=== PATIENT | male | born 1955 | race Caucasian/White ===

== ENCOUNTER → 2017-12-17 | Outpatient (CLI) | payer OTHER ==
[~2017-12-17] MED LIST: ASP325 PO; DABI150C3 PO; DIA5 PO; DILT120C4 PO; PANT40TA65 PO; PER PO
--- NOTE | 2017-12-17 16:48 | RADIOLOGY IMAGING REPORT ---
FACILITY: [facility] - [place] PATIENT NAME: William Jovel : 1955 MR: [id number] V: [id number] EXAM DATE: ORDERING PHYSICIAN: LORI FULTON TECHNOLOGIST: Location: [facility] - [place] Patient: William Jovel : 1955 Visit/Account:[id number] Date of Sevice: 12/17/2017 Exam type: VENOUS DOPP LOW RIGHT EXTREMIT History: Localized pain and swelling Comparison: None. Findings: The right lower extremity veins were imaged including the right common femoral vein, greater saphenou s vein, superficial femoral vein, popliteal vein, peroneal vein, posterior tibial vein and anterior t ibial veins revealing no evidence of intraluminal thrombi. The veins compress normally and demonstra jake augmentation IMPRESSION: 1. No sonographic evidence DVT involving the right lower extremity veins Results were called to LORI FULTON at 12/17/2017 4:42 PM. Report Dictated By: Viki Mcneal MD at 12/17/2017 4:40 PM Report E-Signed By: Viki Mcneal MD at 12/17/2017 4:43 PM WSN:[email or web address]
== END ==
LOC: US 15:36
PROVIDERS: ATTEND Physician Assistant
DX: R22.41 Localized swelling, mass and lump, right lower limb (principal); M79.606 Pain in leg, unspecified

== ENCOUNTER → 2017-12-19 | Outpatient (CLI) | payer OTHER ==
--- NOTE | 2017-12-21 21:31 | RT HOLTER TEST ---
FACILITY: [facility] PATIENT NAME: NOE GEE : [id number] MR: [id number] V: [id number] EXAM DATE: ORDERING PHYSICIAN: BIRGIT CUADRA TECHNOLOGIST: ABDIEL Hook-up date: 2017-12-19 08:05:00 Duration: 23:45:00 Test Indications: I48.1 Medications: N/A [id number] QRS complexes 35 Ventricular ectopics which represent <1 % of total QRS comp. * Supraventricular ectopics which represent % of total QRS comp. * Paced QRS complexes which represent % of total QRS comp. VENTRICULAR ECTOPY 35 Isolated 0 Bigeminal Cycles 0 Couplets 0 Runs 0 Beats in Runs * Beats LONGEST at * BPM at :: -- * Beats FASTEST at * BPM at :: -- SUPRAVENTRICULAR ECTOPY * Isolated * Couplets * Runs * Beats in Runs * Beats LONGEST at * BPM at :: -- * Beats FASTEST at * BPM at :: -- HEART RATES 61 MIN at 19:41:42 2017-12-19 118 AVG 182 MAX at 08:21:47 2017-12-19 LONGEST RR 1.528 secs at 20:21:48 2017-12-19 S-T LEVELS Channel 1 -12.800 mm MIN at 08:05:00 2017-12-19 -12.800 mm MAX at 08:05:00 2017-12-19 Channel 2 -12.800 mm MIN at 08:05:00 2017-12-19 -12.800 mm MAX at 08:05:00 2017-12-19 Channel 3 -12.800 mm MIN at 08:05:00 2017-12-19 -12.800 mm MAX at 08:05:00 2017-12-19 Atrial flutter with variable A-V block Premature ventricular complexes Confirmed by KATERINE BURGOS ([id number]) on 12/21/2017 9:30:40 PM Referred By: Overread By: KATERINE BURGOS
== END ==
LOC: RESP 02:40
PROVIDERS: ATTEND Internal Medicine Cardiovascular Disease
DX: I48.1 Persistent atrial fibrillation (principal)
CPT/HCPCS: 93225; 93226

== ENCOUNTER 2017-12-31 06:58 | Emergency (ER) | payer OTHER ==
[2017-12-31] MEDS ORDERED: DIAZEPAM 5 MG TAB PO ONE (07:55)
[2017-12-31 08:00] LABS: PLATELET COUNT, AUTOMATED 339 K/uL (150-450)
--- NOTE | 2017-12-31 08:12 | ER Report ---
History and Physical Time Seen By MD: 07:30 Hx. of Stated Complaint: PATIENT REPORTS THAT HIS NECK STARTED HURTING YESTERDAY. THIS MORNING HE REPORTS THAT HIS NECK STARTED CRAMPING. HPI/ROS This is a 62-year-old male has multiple chronic orthopedic injuries secondary to college wrestling. He states that he was shoveling snow yesterday and developed left sided neck pain. No falls or other blunt trauma. He describes the pain as intermittent, sharp, and shooting consistent with a muscle spasm. He is not taking any meds for the pain. He didn't take any meds, because he has atrial flutter and is on multiple medications. He did not want any medications to interact. 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 Currently he feels as if he cannot move his neck due to the muscle spasm on the left side. He denies chest pain or shortness of breath, and has no other complaints. Remainder of the 14 system rev: Yes Allergies: Coded Allergies: No Known Drug Allergies (Verified , 04/28/09) Home Meds Reported Medications Dabigatran Etexilate Mesylate (PRADAXA) 150 Mg Capsule, 150 MG PO QDAY, CAPSULE 12/31/17 Potassium Chloride (POTASSIUM CHLORIDE) 20 Meq Tab.er.prt, 20 MEQ PO QDAY 12/31/17 Metoprolol Succinate (METOPROLOL SUCCINATE) 50 Mg Tab.er.24h, 2 TAB PO QDAY, TAB 12/31/17 Diltiazem Hcl (DILTIAZEM 24HR CD) 180 Mg Cap.er.24h, 180 MG PO BID 12/31/17 Discontinued Reported Medications Dabigatran Etexilate Mesylate (PRADAXA) 150 Mg Capsule, 150 MG PO BID, CAPSULE 09/18/13 Pantoprazole Sodium (PANTOPRAZOLE SODIUM) 40 Mg Tablet.dr, 40 MG PO QDAY, TAB.SR 09/18/13 Diltiazem Hcl (DILTIAZEM ER) 120 Mg Capsule.er, 120 MG PO DAILY 09/18/13 [None] No Conflict Check, 0 Refills 04/28/09 Reviewed Nurses Notes: Yes Old Medical Records Reviewed: Yes Hx Smoking: No Smoking Status: Never Smoker Constitutional Vital Sign - Last 24 Hours 12/31/17 12/31/17 12/31/17 12/31/17 07:03 07:03 07:07 07:13 Temp 97.5 Pulse 136 145 Resp 20 B/P (MAP) 88/52 (64) 88/52 104/65 (78) Pulse Ox 96 93 O2 Delivery Room Air 12/31/17 12/31/17 12/31/17 12/31/17 07:28 07:33 07:38 07:43 Pulse 139 127 132 130 Pulse Ox 93 93 95 92 12/31/17 12/31/17 12/31/17 12/31/17 07:48 07:53 07:58 08:00 Pulse 143 ? B/P (MAP) 105/97 (100) 117/105 (109) Pulse Ox 92 91 12/31/17 12/31/17 12/31/17 12/31/17 08:08 08:10 08:15 08:18 Pulse 155 121 B/P (MAP) 111/98 (102) 114/98 (103) Pulse Ox 92 94 12/31/17 12/31/17 12/31/17 12/31/17 08:28 08:33 08:45 08:48 Pulse 126 144 155 B/P (MAP) 135/95 (108) Pulse Ox 95 94 93 12/31/17 12/31/17 12/31/17 12/31/17 09:00 09:03 09:15 09:18 Pulse 101 144 B/P (MAP) 92/79 (83) 110/92 (98) Pulse Ox 94 94 12/31/17 09:30 B/P (MAP) 108/94 (99) Physical Exam General Appearance: The patient is alert, has no immediate need for airway protection and no signs of toxicity. He appears uncomfortable and is sitting with his neck in a forward position Eyes: Pupils equal and round no pallor or injection. ENT, Mouth: Mucous membranes are moist. TTP of the left upper trapezius. Also with point TTP to the left insertion of the trapezius into the cranium. Respiratory: There are no retractions, lungs are clear to auscultation. Cardiovascular: Tachycardic and irregular rhythm Gastrointestinal: Abdomen is soft and non tender, no masses, bowel sounds normal. Neurological: motor and sensation grossly in tact Skin: Warm and dry, no rashes. Musculoskeletal: Neck is supple, no midline TTP. TTP which creates spasm and reproduces symptoms of the left trapezius spasm Extremities are nontender, nonswollen and have full range of motion. DIFFERENTIAL DIAGNOSIS: After history and physical exam differential diagnosis was considered for torticollis, meningitis, fracture, muscle spasm, afib with RVR, ACS, PE Medical Decision Making Data Points Result Diagram: 12/31/17 0717 12/31/17 0717 Laboratory Hematology Test 12/31/17 07:17 Red Blood Count 5.41 M/uL (4.00-5.60) Mean Corpuscular Volume 93.9 fL (80.0-96.0) Mean Corpuscular Hemoglobin 32.4 pg (26.0-33.0) Mean Corpuscular Hemoglobin Concent 34.5 g/dL (32.0-36.0) Red Cell Distribution Width 14.8 % (11.5-14.5) Mean Platelet Volume 8.4 fL (7.2-11.1) Neutrophils (%) (Auto) % (39.4-72.5) Lymphocytes (%) (Auto) % (17.6-49.6) Monocytes (%) (Auto) % (4.1-12.4) Eosinophils (%) (Auto) % (0.4-6.7) Basophils (%) (Auto) % (0.3-1.4) Nucleated RBC Relative Count (auto) /100WBC Neutrophils # (Auto) K/uL (2.0-7.4) Lymphocytes # (Auto) K/uL (1.3-3.6) Monocytes # (Auto) K/uL (0.3-1.0) Eosinophils # (Auto) K/uL (0.0-0.5) Basophils # (Auto) K/uL (0.0-0.1) Nucleated RBC Absolute Count (auto) K/uL Neutrophils % (Manual) 66 % (39.4-72.5) Band Neutrophils % 16 % Lymphocytes % (Manual) 7 % (17.6-49.6) Atypical Lymphocytes % 3 % Monocytes % (Manual) 6 % (4.1-12.4) Eosinophils % (Manual) 1 % (0.4-6.7) Basophils % (Manual) 1 % (0.3-1.4) Peripheral Blood Smear Yes Y/N Sodium Level 134 mmol/L (137-145) Potassium Level 4.5 mmol/L (3.5-5.0) Chloride Level 94 mmol/L (98-107) Carbon Dioxide Level 24 mmol/L (22-30) Blood Urea Nitrogen 15 mg/dl (9-21) Creatinine 1.20 mg/dl (0.66-1.25) Glomerular Filtration Rate Calc > 60.0 Random Glucose 134 mg/dl (75-110) Calcium Level 9.9 mg/dl (8.4-10.2) Magnesium Level 2.0 mg/dl (1.7-2.2) Total Bilirubin 1.3 mg/dl (0.2-1.3) Aspartate Amino Transf (AST/SGOT) 39 U/L (0-35) Alanine Aminotransferase (ALT/SGPT) 43 U/L (0-56) Alkaline Phosphatase 104 U/L (0-126) Total Protein 8.7 gm/dl (6.3-8.2) Albumin 4.6 g/dl (3.5-5.0) Free Thyroxine 1.14 ng/dl (0.78-2.19) Acetaminophen Level < 10 ug/ml Chemistry Test 12/31/17 07:17 White Blood Count 12.1 k/uL (4.5-11.0) Red Blood Count 5.41 M/uL (4.00-5.60) Hemoglobin 17.5 g/dL (14.0-18.0) Hematocrit 50.8 % (42.0-52.0) Mean Corpuscular Volume 93.9 fL (80.0-96.0) Mean Corpuscular Hemoglobin 32.4 pg (26.0-33.0) Mean Corpuscular Hemoglobin Concent 34.5 g/dL (32.0-36.0) Red Cell Distribution Width 14.8 % (11.5-14.5) Platelet Count 339 K/uL (150-450) Mean Platelet Volume 8.4 fL (7.2-11.1) Neutrophils (%) (Auto) % (39.4-72.5) Lymphocytes (%) (Auto) % (17.6-49.6) Monocytes (%) (Auto) % (4.1-12.4) Eosinophils (%) (Auto) % (0.4-6.7) Basophils (%) (Auto) % (0.3-1.4) Nucleated RBC Relative Count (auto) /100WBC Neutrophils # (Auto) K/uL (2.0-7.4) Lymphocytes # (Auto) K/uL (1.3-3.6) Monocytes # (Auto) K/uL (0.3-1.0) Eosinophils # (Auto) K/uL (0.0-0.5) Basophils # (Auto) K/uL (0.0-0.1) Nucleated RBC Absolute Count (auto) K/uL Neutrophils % (Manual) 66 % (39.4-72.5) Band Neutrophils % 16 % Lymphocytes % (Manual) 7 % (17.6-49.6) Atypical Lymphocytes % 3 % Monocytes % (Manual) 6 % (4.1-12.4) Eosinophils % (Manual) 1 % (0.4-6.7) Basophils % (Manual) 1 % (0.3-1.4) Peripheral Blood Smear Yes Y/N Glomerular Filtration Rate Calc > 60.0 Calcium Level 9.9 mg/dl (8.4-10.2) Magnesium Level 2.0 mg/dl (1.7-2.2) Total Bilirubin 1.3 mg/dl (0.2-1.3) Aspartate Amino Transf (AST/SGOT) 39 U/L (0-35) Alanine Aminotransferase (ALT/SGPT) 43 U/L (0-56) Alkaline Phosphatase 104 U/L (0-126) Total Protein 8.7 gm/dl (6.3-8.2) Albumin 4.6 g/dl (3.5-5.0) Free Thyroxine 1.14 ng/dl (0.78-2.19) Acetaminophen Level < 10 ug/ml Toxicology Test 12/31/17 07:17 Acetaminophen Level < 10 ug/ml EKG/Imaging Monitor Interpretation: Atrial Flutter ED Course/Re-evaluation ED Course This is a 62-year-old male with a past medical history significant for atrial flutter which has been refractory to cardiac ablations as well as cardioversion and is currently on rate control meds only as well as Pradaxa. He presented to the emergency department today complaining of musculoskeletal left-sided neck spasm which occurred after shoveling snow yesterday. The nursing staff noted his heart rate to be in the 160s and obtained an EKG which showed atrial flutter with a heart rate of 148. He is currently on metoprolol 100 mg twice a day and diltiazem 180 mg in the morning. He was otherwise asymptomatic from his atrial flutter with RVR. I discussed possible cardioversion his guest relations agent Dr. Phipps, and the consensus is that his A. fib and a flutter so refractory to electrical cardioversion that it would either not be successful be successful only temporarily. Dr. Phipps recommended that the patient call ahead and increase the diltiazem to twice a day. Dr. Phipps also recommended that after initiating that medication change he should take his heart rate and required multiple times a day. Call is for his heart rate to be under 110. Pain control does not work for this patient then the cardiology team will discuss an ablation procedure with the patient. His electrolytes were checked and were within normal limits. As far as his muscle spasm he was given 5 mg of Valium as well as a gram of Tylenol and a trigger point injection was performed by me. His pain and muscle spasm is somewhat relieved from the medications and procedure. Procedure Trigger point injection - I cleaned the area of the left trapezius insertion to the cranium with alcohol swabs. Using a combination of bupivicaine and lidocaine both without epi, I located the trigger point of pain and injected 2.5 ml of each at the site using a 27 gauge needle. The patient tolerated the procedure well Decision to Disposition Date: Dec 31, 2017 Decision to Disposition Time: 10:28 Depart Departure Latest Vital Signs Vital Signs Date Time Temp Pulse Resp B/P (MAP) Pulse Ox O2 Delivery O2 Flow Rate FiO2 12/31/17 09:30 108/94 (99) 12/31/17 09:18 144 94 12/31/17 07:03 97.5 20 Room Air Impression: Primary Impression: UNSPECIFIED ATRIAL FLUTTER Additional Impression: SPASMODIC TORTICOLLIS Condition: Improved Disposition: HOME OR SELF-CARE New Scripts Diazepam (VALIUM) 5 Mg Tablet 5 MG PO 2-3XD for Muscle Relaxant, #15 TAB Prov: ENEDINA FLORES MD 12/31/17 Patient Instructions: Spasmodic Torticollis (ED) Additional Instructions: start taking your metoprolol and diltiazem both 2 times a day Problem Qualifiers ENEDINA FLORES MD Dec 31, 2017 08:12
[2017-12-31] MEDS ORDERED: ACETAMINOPHEN 500 MG TAB PO ONE (08:45)
[2017-12-31] MEDS ORDERED: METO50TA19 PO (08:50)
[2017-12-31] MEDS ORDERED: DILT180C4 PO (08:50)
[2017-12-31] MEDS ORDERED: POTA20TA94 PO (08:51)
[2017-12-31] MEDS ORDERED: DABI150C3 PO (08:51)
--- NOTE | 2017-12-31 10:22 | EKG ---
FAC[place] [facility] [place]IENT NAME: NOE GEE : [id number] MR: [id number] V: [id number] EXAM DATE: ORDERING PHYSICIAN: ENEDINA FLORES TECHNOLOGIST: Test Reason : AFIB Blood Pressure : / mmHG Vent. Rate : 148 BPM Atrial Rate : 388 BPM P-R Int : 000 ms QRS Dur : 076 ms QT Int : 302 ms P-R-T Axes : 000 214 000 degrees QTc Int : 474 ms Atrial flutter with variable AV block Right superior axis deviation Anterior infarct , age undetermined Abnormal ECG When compared with ECG of 18-SEP-2013 21:46, Vent. rate has increased BY 53 BPM Questionable change in QRS axis Nonspecific T wave abnormality no longer evident in Anterolateral leads Referred By: Confirmed By:
[2017-12-31] MEDS ORDERED: DIA5 PO (10:29)
[2017-12-31 10:31] VITALS: BP 129/102
== END 2017-12-31 10:51 | disposition home or self-care (01) ==
LOC: ER 07:03
DX: I48.92 Unspecified atrial flutter (principal); G24.3 Spasmodic torticollis; Z79.899 Other long term (current) drug therapy
CPT/HCPCS: 80329; 82040; 82247; 82310; 82374; 82435; 82565; 82947; 83735; 84075; 84132; 84155; 84295; 84439; 84443; 84450; 84460; 84520; 85025; 93005; 99284

== ENCOUNTER → 2018-01-08 | Outpatient (CLI) | payer OTHER ==
[~2018-01-08] MED LIST changes: +DILT180C4 PO; +METO50TA19 PO; +POTA20TA94 PO
== END ==
LOC: LAB 12:25
PROVIDERS: ATTEND Orthopaedic Surgery
DX: M25.561 Pain in right knee (principal); M25.461 Effusion, right knee
CPT/HCPCS: 36415; 84550; 85027; 85651; 86038; 86140; 86430; 87205; 89050

== ENCOUNTER → 2018-03-17 | Outpatient (CLI) | payer OTHER ==
[2018-03-17 09:02] LABS: PLATELET COUNT, AUTOMATED 367 K/uL (150-450)
--- NOTE | 2018-03-17 09:08 | EKG ---
FACILITY: [facility] - [place] PATIENT NAME: NOE GEE : [id number] MR: [id number] V: [id number] EXAM DATE: ORDERING PHYSICIAN: KERON SORIANO TECHNOLOGIST: HELENA Test Reason : PRE-OP Blood Pressure : / mmHG Vent. Rate : 098 BPM Atrial Rate : 131 BPM P-R Int : 000 ms QRS Dur : 078 ms QT Int : 334 ms P-R-T Axes : 000 253 -24 degrees QTc Int : 426 ms Atrial fibrillation Right superior axis deviation Abnormal ECG When compared with ECG of 31-DEC-2017 07:06, Atrial fibrillation has replaced Atrial flutter Vent. rate has decreased BY 50 BPM Confirmed by VERENICE NORTON ([id number]) on 03/17/2018 1:00:52 PM Referred By: CHRISTIE Confirmed By:VERENICE NORTON
--- NOTE | 2018-03-17 09:34 | RADIOLOGY IMAGING REPORT ---
FACILITY: [facility] [place] PATIENT NAME: William Jovel : 1955 MR: [id number] V: [id number] EXAM DATE: ORDERING PHYSICIAN: KERON SORIANO TECHNOLOGIST: Location: [facility] Patient: William Jovel : 1955 Visit/Account:[id number] Date of Sevice: 03/17/2018 Technique: CERVICAL SPINE 2 OR 3 VIEW HISTORY: Preoperative Comparison studies: None FINDINGS: There is no acute fracture. Present is 2 mm retrolisthesis of C2 on C3, 2 mm anterolisthes is of C3 on C4 as well as 3 mm anterolisthesis of C4 on C5. This is not significantly changed with f lexion or extension. Multilevel degenerative changes are present characterized by intervertebral dis c space narrowing and endplate osteophytosis. These findings are most pronounced within the mid and lower cervical spine. The vertebral body heights are maintained. IMPRESSION: 1. Multilevel degenerative changes as characterized above. Report Dictated By: Ben Elmore DO at 03/17/2018 9:27 AM Report E-Signed By: Ben Elmore DO at 03/17/2018 9:29 AM WSN:[email or web address]
== END ==
LOC: RAD 08:35
PROVIDERS: ATTEND Orthopaedic Surgery
DX: Z01.812 Encounter for preprocedural laboratory examination (principal); Z01.810 Encounter for preprocedural cardiovascular examination; M43.6 Torticollis; M17.11 Unilateral primary osteoarthritis, right knee; I48.91 Unspecified atrial fibrillation; R06.02 Shortness of breath; M10.9 Gout, unspecified; M47.892 Other spondylosis, cervical region
CPT/HCPCS: 36415; 72040; 80162; 81001; 82040; 82247; 82310; 82374; 82435; 82565; 82947; 84075; 84132; 84155; 84295; 84450; 84460; 84520; 85025; 93005

== ENCOUNTER 2018-04-14 01:19 | Inpatient (IN) | payer OTHER ==
[2018-04-13 15:48] LABS: INR 0.97
[2018-04-14] VITALS (15 sets, daily range): BP systolic 93–129; BP diastolic 65–102
[~2018-04-14] VITALS: Ht 172.7 cm; Wt 80.7 kg
[~2018-04-14 01:19] MED LIST changes: +ALLO-119 PO; +APIX2.5T PO; +COLC1TAB5 PO; +DIGO125T73 PO; +FURO20TA19 PO
[2018-04-14] MEDS ORDERED: LIDOCAINE/SOD BICARB 8.4% SYR ID ONE (06:15)
[2018-04-14] MEDS ORDERED: cloNIDine EPIDUR INJ 100MCG/ML 40 MCG, ROPIVACAINE 0.5% 20 ML VIAL 25 ML, EPINEPHrine H... INJ ONE (06:15)
[2018-04-14] MEDS ORDERED: CELECOXIB 200 MG CAP PO ONE (06:15)
[2018-04-14] MEDS ORDERED: MIDAZOLAM 2 MG/2 ML VIAL IVP PRN (06:15)
[2018-04-14] MEDS ORDERED: ceFAZolin(*) 1 GM VIAL 1 GM in NS(*) 0.9% 100 ML ADDVANT BAG 100 ML IVPB ONE (06:15)
[2018-04-14] MEDS ORDERED: FAMOTIDINE 20 MG TAB PO ONE (06:15)
[2018-04-14] MEDS ORDERED: PREGABALIN 150 MG CAPSULE PO ONE (06:15)
[2018-04-14] MEDS ORDERED: ACETAMINOPHEN 500 MG TAB PO ONE (06:15)
[2018-04-14] MEDS ORDERED: NORMOSOL R SOLN(*) 1000 ML BAG 1,000 ML IV PRN ×2 (06:15→09:40)
[2018-04-14] MEDS ORDERED: fentaNYL CITR 250 MCG/5 ML AMP ONE (06:30)
[2018-04-14] MEDS ORDERED: DEXAMETHASONE SOD PHOS 10MG/ML ONE (06:30)
[2018-04-14] MEDS ORDERED: LIDOCAINE MPF 1% 5 ML VIAL ONE (06:30)
[2018-04-14] MEDS ORDERED: ONDANSETRON 4 MG/2 ML VIAL ONE (06:30)
[2018-04-14] MEDS ORDERED: PROPOFOL EMUL(*) 10MG/ML 20 ML 20 ML ONE (06:30)
[2018-04-14] MEDS ORDERED: ROPIVACAINE 0.2% 20 ML VIAL ONE (06:49)
[2018-04-14] MEDS ORDERED: EPINEPHrine HCL 1 MG/ML AMP ONE (06:50)
[2018-04-14] MEDS ORDERED: METOPROLOL TART 5 MG/5 ML VIAL ONE (07:25)
[2018-04-14] MEDS ORDERED: ROCURONIUM BROM 10 MG/ML 5 ML ONE (07:30)
[2018-04-14] MEDS ORDERED: ESMOLOL 10 MG/ML 10ML SDV ONE (07:35)
[2018-04-14] MEDS ORDERED: KETAMINE HCL 200 MG/20 ML MDV ONE (07:39)
[2018-04-14] MEDS ORDERED: PHENYLEPHRINE/NS/PF 0.4MG/10ML ONE (07:41)
[2018-04-14] MEDS ORDERED: TRANEXAMIC AC 1000 MG/10ML SDV 1,000 MG in DEXTROSE 5% 50 ML BAG 50 ML IV ONE (07:45)
[2018-04-14] MEDS ORDERED: SUGAMMADEX SOD 200 MG/2 ML SDV ONE (07:48)
[2018-04-14] MEDS ORDERED: HYDROmorphone HCL 2 MG/ML SDV ONE (08:18)
[2018-04-14] MEDS ORDERED: ROPIVACAINE 0.2% 400 MG/200ML 250 ML CONINFUS ONE (08:30)
[2018-04-14] MEDS ORDERED: PROMETHAZINE 25 MG/ML 1 ML AMP IVP PRN (09:40)
[2018-04-14] MEDS ORDERED: NALOXONE HCL 0.4 MG/ML VIAL IVP PRN (09:40)
[2018-04-14] MEDS ORDERED: FLUSH 10 ML SYR IVP PRN (09:40)
[2018-04-14] MEDS ORDERED: MAGNESIUM HYDROXIDE* 30ML UDCP PO PRN (09:40)
[2018-04-14] MEDS ORDERED: ONDANSETRON 4 MG/2 ML VIAL IVP PRN (09:40)
[2018-04-14] MEDS ORDERED: BISACODYL 10 MG SUPP PR PRN (09:40)
[2018-04-14] MEDS ORDERED: MORPHINE SULFATE 30 MG PCA IV PRN (09:40)
[2018-04-14] MEDS ORDERED: MORPHINE 4 MG/ML SDV IVP PRN (09:45)
[2018-04-14] MEDS ORDERED: fentaNYL CITR 100 MCG/2 ML AMP ONE (10:11)
--- NOTE | 2018-04-14 10:42 | OPERATIVE REPORT 1 ---
EVENT DATE: April 14, 2018 SURGEON: Charlie Feliciano MD ANESTHESIOLOGIST: Estuardo Vu MD ANESTHESIA: Right adductor canal block with indwelling catheter and general. SUPERVISOR KNITTING: Kale Mesa PA-C PREOPERATIVE DIAGNOSIS Right knee degenerative joint disease with varus alignment and significant flexion contracture. POSTOPERATIVE DIAGNOSIS Right knee degenerative joint disease with varus alignment and significant flexion contracture. PROCEDURE Right total knee arthroplasty. IMPLANTS MicroPort medial pivot shift CS system with a 5 femur, 6 tibia, 14 mm CS insert , 32 x 8 symmetric patella, femur cut 6 degrees valgus, and initially 12 mm. We also utilized two packages of DonJoy cobalt blue cement. We also utilized 50 mL of our standard ropivacaine/Toradol cocktail and ZipLine wound closure system. SPECIMENS None. COMPLICATIONS None. ESTIMATED BLOOD LOSS Less than 200 mL. OPERATION Patient received appropriate preoperative antibiotic, was brought to the OR, where Dr. Ashutosh Vu performed right adductor canal block and indwelling catheter followed by general anesthesia. Right thigh tourniquet was placed, right lower extremity prepped and draped in the usual sterile fashion. Midline incision was made, followed by medial parapatellar arthrotomy. I dissected subperiosteally to the level of the semimembranosus insertion in subperiosteal fashion by Bovantoine. Fat pad was excised, patella released and everted. I noted fairly significant rheumatoid soft tissue reaction and synovitis, and this was excised. We then brought the knee up into flexion with appropriate retractors, noted significant osteophytes in the notch, and these were removed, and the PCL was released subperiosteally by Bovie. The ACL was absent. Remaining articular cartilage was removed from the distal femoral condyles by sagittal saw, then we used our step cut drill to broach the canal. We placed our distal femoral alignment guide, setting this up 6 degrees valgus and 12 mm. We made our cut. We then placed our 3 degree external rotation guide, referencing off the posterior condyles, epicondyles and anterior flange and sized the femur to a # 5. 4-in-1 cutting block was positioned followed by appropriate retractors to protect the soft tissue. We made our four cuts. We then brought the tibia anteriorly on the femur with appropriate retractors, utilized the step cut drill , broached the tibial canal, and then placed our medullary tibial guide, which referenced for slope. We then set up the cutting block, referencing 10 mm off the least involved lateral tibial plateau and set up for rotation, pinned our block into place. Tibial cut was made. Osteophytes were removed from the medial side. The stump of the PCL, medial and lateral meniscus were removed by Bovie. Posterior osteophytes were removed by curved osteotome. Posterior capsule and gastrocs were elevated off the femur with a Hewitt elevator. We then placed our trial tibial base place, #6, referencing from the previous rotation, pinned in this place. Starting with a 12 mm insert, we then placed our femur, and we noted that we lacked about 5-10 degrees from full extension. The femur, tibial insert were removed. We then placed appropriate retractors, and we placed our distal femoral cutting guide once again and set this up for a +2 cut , making the total distal femur cut 14 mm. We placed the 4-in-1 cutting block, made our distal cut. We then placed our 4-in-1 cutting block and redid our chamfers. We then placed our 14 mm insert and our femur. We achieved full extension now and flexion to 140 degrees and stable through varus, valgus stress. At 90 degrees, we had a satisfactory anterior drawer. Knee was brought up in full extension. Patella was sized to 27 mm in depth. We cut 8 mm with the guide and set up our peg hole guide inferiorly medially, drilled our peg holes for a 32 x 8 mm patella. Knee was brought up into extension, peg holes drilled for our femur, pegs placed, and cut made for our trochlear chip, and the chip was placed. We placed our patella. Again we had the aforementioned range of motion and stability. Anterior drawer was satisfactory and patella tracked well. Patella, femur, tibial insert were removed. Appropriate retractors were placed. We placed our tibial keel guide, and we cut , reamed and punched for this. All instrumentation was then removed, bone plug placed in the distal femur. We copiously irrigated by pulse lavage while we mixed two packages of DonJoy cobalt blue cement. We injected the posterior capsule with 10 mL of our cocktail, brought the knee up in appropriate position , irrigated, dried the bone, and starting at the tibia, cemented this into place followed by our 14 mm CS insert, then our #5 femur. Excess cement was removed, knee brought out in full extension with axial compression while we cemented the patella. It took 15 minutes for the cement to harden. While the cement was hardening, we injected the remaining cocktail into the distal quad mechanism, copiously irrigated by pulse lavage. After the cement had hardened, again we had full extension, flexion to 140. Patella tracked well. Stability through varus, valgus stress, and satisfactory end point and anterior drawer. We irrigated once again utilizing a total of 4L. We then closed our arthrotomy with #2 Vicryl in [id number] suture fashion, followed by 2-0 Vicryl for subcutaneous tissues. We cleaned the wounds, applied our ZipLine wound closure system at 45 degrees, and placed our compressive dressing. Patient was then extubated and taken to recovery in stable condition. Hospitalist team will be consulted for medical management and anticoagulation, PT for rehab. CLAUDIA
--- NOTE | 2018-04-14 10:46 | RADIOLOGY IMAGING REPORT ---
FACILITY: PATIENT NAME: William Jovel : 1955 MR: [id number] V: [id number] EXAM DATE: ORDERING PHYSICIAN: KERON SORIANO TECHNOLOGIST: Location: [facility] - [place] Patient: William Jovel : 1955 Visit/Account:[id number] Date of Sevice: 04/14/2018 Exam type: KNEE LIMITED RIGHT History: Postop total knee Comparison: None. Findings: AP and lateral views of the right knee demonstrate a total right knee arthroplasty in good anatomic a lignment. Soft tissue gas projects over the anterior aspect this postoperative knee IMPRESSION: 1. As above Report Dictated By: Viki Mcneal MD at 04/14/2018 10:41 AM Report E-Signed By: Viki Mcneal MD at 04/14/2018 10:42 AM WSN:[email or web address]
--- NOTE | 2018-04-14 14:09 | Hospitalist Consultation ---
History of Present Illness Requesting Physician Dr. Feliciano Reason for Consult Chronic atrial fibrillation History of Present Illness This patient was admitted for knee replacement surgery. It is reported that the surgery went well and was without complication. History Problems: (1) Chronic a-fib (2) H/O cardiac radiofrequency ablation Home Meds Reported Medications Colchicine/Probenecid (PROBENECID-COLCHICINE TABS) 1 Each Tablet, 1 EACH PO DAILY 04/07/18 Furosemide (LASIX) 20 Mg Tablet, 1 TAB PO DAILY, TAB 04/07/18 Digoxin (DIGOXIN) 125 Mcg Tablet, 125 MCG PO DAILY 04/07/18 Allopurinol (ZYLOPRIM) 300 Mg Tablet, 300 MG PO HS, TAB 04/07/18 Apixaban (ELIQUIS) 2.5 Mg Tablet, 2.5 MG PO BID 04/07/18 Potassium Chloride (POTASSIUM CHLORIDE) 20 Meq Tab.er.prt, 20 MEQ PO QDAY 12/31/17 Metoprolol Succinate (METOPROLOL SUCCINATE) 50 Mg Tab.er.24h, 2 TAB PO QDAY, TAB 12/31/17 Diltiazem Hcl (DILTIAZEM 24HR CD) 180 Mg Cap.er.24h, 180 MG PO BID 12/31/17 Discontinued Reported Medications Dabigatran Etexilate Mesylate (PRADAXA) 150 Mg Capsule, 150 MG PO QDAY, CAPSULE 12/31/17 Discontinued Scripts Diazepam (VALIUM) 5 Mg Tablet, 5 MG PO 2-3XD for Muscle Relaxant, #15 TAB Prov:ENEDINA FLORES MD 12/31/17 Allergies: Coded Allergies: No Known Drug Allergies (Verified , 04/13/18) Patient History: FH: brain aneurysm MOTHER, FH: heart disease FATHER BROTHER OR SISTER Hx Smoking: No Smoking Status: Never Smoker Caffeine Intake: Coffee Caffeine/Cups Per Day: 3 Hx Alcohol Use: Yes Alcohol Used: Beer Hx Substance Use Disorder: No Social Drug Use: Never History of IV Drug Use: No Review of Systems All Systems Reviewed/Normal: Yes Exam Vital Signs Vital Signs Date Time Temp Pulse Resp B/P (MAP) Pulse Ox O2 Delivery O2 Flow Rate FiO2 04/14/18 13:30 99/78 (85) 04/14/18 13:00 101 90 Nasal Cannula 0.5 04/14/18 11:00 98.3 12 Neuro: No Gross deficits Cardiovascular: Regular Rate and Rhythm Respiratory: Clear to Auscultation Extremities: No Edema Integumentary: No Cyanosis Assessment and Plan Problems: (1) S/P knee replacement Assessment & Plan: He has been on Eliquis for his atrial fibrillation and will resume this post operatively. (2) Chronic a-fib Assessment & Plan: He is on chronic treatment with digoxin, metoprolol, and Eliquis. (3) Gout Assessment & Plan: He is on chronic treatment with allopurinol. (4) Hypertension Assessment & Plan: He is on chronic treatment with Lasix, which is currently on hold. Venous Thromboembolism Antithrombotics Is Pt On Any Antithrombotics?: Yes Exam Sepsis Risk: No Definite Risk KATERINE BURGOS DO Apr 14, 2018 14:09
[2018-04-14] MEDS ORDERED: METO100T20 PO (15:21)
[2018-04-14] MEDS ORDERED: CEPH500C24 PO (15:29)
[2018-04-14] MEDS ORDERED: NS(*) 0.9% 250 ML BAG 250 ML ONE (16:11)
[2018-04-14] MEDS: ceFAZolin(*) 1 GM VIAL 1 GM in NS(*) 0.9% 100 ML ADDVANT BAG 100 ML IVPB SCH ×2 (16:14→23:47)
[2018-04-14] MEDS ORDERED: NS(*) 0.9% 250 ML BAG 250 ML IV PRN (16:15)
[2018-04-14] MEDS: ACETAMINOPHEN 500 MG TAB PO SCH ×2 (16:49→23:48)
[2018-04-14] MEDS: ZOLPIDEM TARTRATE 5 MG TAB PO PRN (20:56)
[2018-04-14] MEDS: DILTIAZEM CD 180 MG CAPCR PO SCH (20:56)
[2018-04-14] MEDS: ALLOPURINOL 300 MG TAB PO SCH (20:56)
[2018-04-14] MEDS: METOPROLOL SUCC XL 50 MG TABCR 50 MG TAB.ER.24H PO SCH (20:56)
[2018-04-15] VITALS (9 sets, daily range): BP systolic 80–130; BP diastolic 56–101; Ht 172.7 cm; Wt 80.7 kg
[2018-04-15] MEDS: ceFAZolin(*) 1 GM VIAL 1 GM in NS(*) 0.9% 100 ML ADDVANT BAG 100 ML IVPB SCH (06:14)
--- NOTE | 2018-04-15 07:48 | Hospitalist Progress Note ---
Subjective Progress Notes Subjective This patient was admitted for knee replacement. He had no acute issues overnight. Patient Complains of: Cardiovascular: No: Chest Pain Respiratory: No: Shortness of Breath Physical Exam Vital Signs Date Time Temp Pulse Resp B/P (MAP) Pulse Ox O2 Delivery O2 Flow Rate FiO2 04/15/18 07:18 98.2 126 16 115/94 (101) 95 Room Air 04/15/18 05:57 0.5 Intake and Output 04/16/18 07:00 # Voids 1 Cardiovascular: Regular Rate and Rhythm Respiratory: Clear to Auscultation Result Diagram: 04/15/18 0552 Assessment and Plan Problems: (1) S/P knee replacement Assessment & Plan: He has been on Eliquis for his atrial fibrillation and will resume this post operatively. (2) Chronic a-fib Assessment & Plan: He is on chronic treatment with digoxin, metoprolol, and Eliquis. (3) Gout Assessment & Plan: He is on chronic treatment with allopurinol. (4) Hypertension Assessment & Plan: He is on chronic treatment with Lasix, which is currently on hold. Exam Sepsis Risk: No Definite Risk KATERINE BURGOS DO Apr 15, 2018 07:48
[2018-04-15] MEDS: POTASSIUM CHL 20 MEQ TABCR PO SCH (08:52)
[2018-04-15] MEDS: DILTIAZEM CD 180 MG CAPCR PO SCH ×2 (08:52→20:54)
[2018-04-15] MEDS: APIXABAN 2.5 MG TABLET PO SCH ×2 (08:52→20:55)
[2018-04-15] MEDS: DIGOXIN 0.125 MG TAB PO SCH (08:52)
[2018-04-15] MEDS: ACETAMINOPHEN 500 MG TAB PO SCH ×2 (08:53→16:27)
[2018-04-15] MEDS: PROBENECID PO SCH (08:56)
[2018-04-15] MEDS: COLCHICINE PO SCH (08:56)
[2018-04-15] MEDS: METOPROLOL SUCC XL 50 MG TABCR 50 MG TAB.ER.24H PO SCH ×2 (09:00→20:55)
[2018-04-15] MEDS ORDERED: METOPROLOL SUCC XL 50 MG TABCR 50 MG TAB.ER.24H PO SCH (09:00)
[2018-04-15] MEDS: oxyCODONE HCL 5 MG CAP PO PRN (13:39)
[2018-04-15] MEDS: METOPROLOL TART 5 MG/5 ML VIAL IVP PRN ×2 (15:46→18:35)
[2018-04-15] MEDS: ALLOPURINOL 300 MG TAB PO SCH (20:54)
[2018-04-15] MEDS: ZOLPIDEM TARTRATE 5 MG TAB PO PRN (20:55)
[2018-04-16 00:51] VITALS: BP 133/96
[2018-04-16] MEDS: ACETAMINOPHEN 500 MG TAB PO SCH ×2 (01:07→10:19)
[2018-04-16 03:44] VITALS: BP 129/99
[2018-04-16 05:41] LABS: PLATELET COUNT, AUTOMATED 211 K/uL (150-450)
[2018-04-16 07:04] VITALS: BP 122/78
[2018-04-16] MEDS: COLCHICINE PO SCH ×2 (09:00→10:36)
[2018-04-16] MEDS: PROBENECID PO SCH ×2 (09:00→10:36)
[2018-04-16] MEDS ORDERED: APIXABAN 2.5 MG TABLET PO ONE (10:05)
[2018-04-16 10:12] VITALS: BP 132/84
[2018-04-16] MEDS: DILTIAZEM CD 180 MG CAPCR PO SCH (10:18)
[2018-04-16] MEDS: DIGOXIN 0.125 MG TAB PO SCH (10:18)
[2018-04-16] MEDS: METOPROLOL SUCC XL 50 MG TABCR 50 MG TAB.ER.24H PO SCH (10:19)
[2018-04-16] MEDS: POTASSIUM CHL 20 MEQ TABCR PO SCH (10:19)
[2018-04-16] MEDS: oxyCODONE HCL 5 MG CAP PO PRN (10:28)
[2018-04-16] MEDS ORDERED: LEFL20TA6 PO (10:45)
--- NOTE | 2018-04-16 10:48 | Hospitalist Progress Note ---
Subjective Progress Notes Subjective He is aware of his heart rate being elevated, but denies any CP/SOB. Physical Exam Vital Signs Date Time Temp Pulse Resp B/P (MAP) Pulse Ox O2 Delivery O2 Flow Rate FiO2 04/16/18 10:18 130 04/16/18 10:12 98.2 20 132/84 (100) 93 Room Air 04/16/18 04:12 2.0 Intake and Output 04/17/18 07:00 Intake Total 480 ml Balance 480 ml Intake Oral 480 ml # Voids 1 General Appearance: Alert, Awake Cardiovascular: Other (Irregular) Result Diagram: 04/16/18 0516 04/16/18 0516 Assessment and Plan Problems: (1) S/P knee replacement Assessment & Plan: He has been on Eliquis 5mg BID for his atrial fibrillation and we have resumed this post operatively. (2) Chronic a-fib Assessment & Plan: He is on chronic treatment with digoxin, metoprolol, and Eliquis. (3) Gout Assessment & Plan: He is on chronic treatment with allopurinol. (4) Hypertension Assessment & Plan: He is on chronic treatment with Lasix, which is currently on hold. (5) RA (rheumatoid arthritis) Status: Chronic Assessment & Plan: He will continue with the Arava 20mg daily and prednisone 10mg BID. He was advised to follow up with his community outreach worker in next 2-4 weeks to discuss his regimen. Exam Sepsis Risk: No Definite Risk CORTES CHURCHILL MD Apr 16, 2018 10:48
[2018-04-16] MEDS ORDERED: PRED-1 PO (10:50)
[2018-04-16 11:31] VITALS: BP 128/98
[2018-04-16] MEDS ORDERED: APIX5TAB PO (11:43)
[2018-04-16] MEDS ORDERED: APIXABAN 2.5 MG TABLET PO SCH (21:00)
--- NOTE | 2018-04-16 21:46 | DISCHARGE SUMMARY ---
DATE OF ADMISSION: April 14, 2018 DATE OF DISCHARGE: April 16, 2018 The patient was admitted through Day Surgery and underwent right total knee arthroplasty. Postoperatively, the hospitalist team was consulted for medical management and anticoagulation, PT for rehabilitation. He progressed in a satisfactory manner. On the day of discharge, the wound was clean, dry, and intact. Right lower extremity was neurovascularly intact. He will be set up for outpatient PT, home CPM, dressing changes per protocol. Percocet 7.5/325 #40 is prescribed for pain. Medical management will be transferred by the hospitalist as well as anticoagulation. PRINCIPAL DIAGNOSIS Right knee degenerative joint disease. SURGICAL PROCEDURE Right total knee arthroplasty. DEYAD
== END 2018-04-16 12:10 | disposition home or self-care (01) | DRG 470 ==
LOC: OR 01:19 → OBSVTOIN 11:00 → MED 11:00
PROVIDERS: ADMIT Orthopaedic Surgery; ATTEND Orthopaedic Surgery
PROC: 0SRC0J9 Replacement of Right Knee Joint with Synthetic Substitute, Cemented, Open Approach (ICD-10-PCS; principal; 2018-04-14 07:15)
DX: M17.11 Unilateral primary osteoarthritis, right knee (principal); M24.561 Contracture, right knee; M21.161 Varus deformity, not elsewhere classified, right knee; I48.2 Chronic atrial fibrillation; M06.9 Rheumatoid arthritis, unspecified; M1A.9XX0 Chronic gout, unspecified, without tophus (tophi); I10 Essential (primary) hypertension; Z79.01 Long term (current) use of anticoagulants
CPT/HCPCS: 36415; 76942; 80162; 82310; 82374; 82435; 82565; 82947; 83735; 84132; 84295; 84520; 85014; 85018; 85025; 85610; 86850; 86900; 86901; 97161; C1713; C1776; J0171; J0690; J0735; J1100; J1170; J1885; J2001; J2250; J2370; J2405; J2704; J2795; J3010; J3490; J7050; J7060

== ENCOUNTER → 2018-05-12 | Outpatient (CLI) | payer OTHER ==
[2018-04-15 12:38] VITALS: BMI 27.1
[~2018-05-12] MED LIST changes: +APIX5TAB PO; +CEPH500C24 PO; +LEFL20TA6 PO; +METO100T20 PO; +PRED-1 PO
--- NOTE | 2018-05-12 14:26 | RADIOLOGY IMAGING REPORT ---
FACILITY: [facility] - [place] PATIENT NAME: William Jovel : 1955 MR: [id number] V: [id number] EXAM DATE: ORDERING PHYSICIAN: JORDAN FARIAS TECHNOLOGIST: Location: [facility] - [place] Patient: William Jovel : 1955 Visit/Account:[id number] Date of Sevice: 05/12/2018 SINGLE ORGAN HISTORY: Incomplete bladder emptying COMPARISON: None. FINDINGS: Urinary bladder prevoid volume was 161 mL. The post void residual was 20.4 mL. Bilateral ureteral j ets are present. Prostate gland measures 3.7 x 2.2 x 2.9 cm and appears heterogeneous The aorta and IVC are patent IMPRESSION: Urinary bladder prevoid volume 161 mL and postvoid residual 20.4 mL Prostate gland appears heterogeneous Report Dictated By: Viki Mcneal MD at 05/12/2018 2:20 PM Report E-Signed By: Viki Mcneal MD at 05/12/2018 2:22 PM WSN:[id number]
== END ==
LOC: US 07:30
DX: R39.14 Feeling of incomplete bladder emptying (principal)
CPT/HCPCS: 76705

== ENCOUNTER → 2019-02-13 | Outpatient (CLI) | payer OTHER ==
[2018-04-15 12:38] VITALS: BMI 27.1
[~2019-02-13] MED LIST changes: +GADOBENATE 529MG/1ML 15ML VIAL IVP ONE
--- NOTE | 2019-02-13 11:04 | RADIOLOGY IMAGING REPORT ---
FACILITY: [facility] PATIENT NAME: William Jovel : 1955 MR: [id number] V: [id number] EXAM DATE: ORDERING PHYSICIAN: BIRGIT CUADRA TECHNOLOGIST: Location: [facility] Patient: William Jovel : 1955 Visit/Account:[id number] Date of Sevice: 02/13/2019 EXAMINATION: MRI Brain without intravenous contrast MRI Brain with intravenous contrast HISTORY: Neurologic deficit. COMPARISON: None available. TECHNIQUE: Multi-planar, multi-sequence brain MRI was performed before and after IV gadolinium. CONTRAST: 15 mL of IV MultiHance FINDINGS: Brain volume: Mild generalized volume loss. Sagittal midline structures: Negative. Ventricles: Negative. Acute ischemic changes: Chronic left inferior occipitotemporal infarction with cortical laminar necr osis. Small chronic infarction in the right inferior frontal gyrus. No evidence of acute infarction . Hemorrhage: No acute intracranial hemorrhage. Masses / edema: None. Enhancement: Negative. Hirsch-white: Otherwise negative. White matter: Minimal FLAIR hyperintensity in the periventricular white matter, nonspecific but most likely representing chronic microvascular ischemia. Vessels: Negative. Extra-axial: Negative. Calvarium / scalp: Negative. Skull base: Negative. Visualized sinuses / orbits: Leftward nasal septal deviation. Visualized upper neck: Negative. IMPRESSION: 1. No acute intracranial abnormality or mass. 2. 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 3. Small chronic infarction in the right inferior frontal gyrus. Report Dictated By: Mark Holguin MD at 02/13/2019 10:54 AM Report E-Signed By: Mark Holguin MD at 02/13/2019 11:01 AM WSN:[id number]
== END ==
LOC: MRI 00:32
PROVIDERS: ATTEND Internal Medicine Cardiovascular Disease
DX: G45.9 Transient cerebral ischemic attack, unspecified (principal)
CPT/HCPCS: 70553; A9577

== ENCOUNTER → 2019-02-23 | Outpatient (CLI) | payer OTHER ==
[2018-04-15 12:38] VITALS: BMI 27.1
[~2019-02-23] MED LIST changes: -GADOBENATE 529MG/1ML 15ML VIAL IVP ONE
--- NOTE | 2019-02-25 12:38 | RT HOLTER TEST ---
FACILITY: [facility] - [place] PATIENT NAME: NOE GEE : [id number] MR: [id number] V: [id number] EXAM DATE: ORDERING PHYSICIAN: BIRGIT RAIN TECHNOLOGIST: ABDIEL Hook-up date: 2019-02-23 10:56:00 Duration: 47:59:00 Test Indications: ATRIAL FLUTTER Medications: N/A 656504 QRS complexes 7046 Ventricular ectopics which represent 2 % of total QRS comp. 67014 Supraventricular ectopics which represent 8 % of total QRS comp. * Paced QRS complexes which represent % of total QRS comp. VENTRICULAR ECTOPY 2552 Isolated 18 Bigeminal Cycles 1071 Couplets 714 Runs 2352 Beats in Runs 8 Beats LONGEST at 215 BPM at 18:33:30 2019-02-24 3 Beats FASTEST at 238 BPM at 22:45:12 2019-02-24 SUPRAVENTRICULAR ECTOPY 1038 Isolated 165 Couplets 160 Runs 55466 Beats in Runs 70331 Beats LONGEST at 102 BPM at 02:48:00 2019-02-25 3 Beats FASTEST at 217 BPM at 21:54:37 2019-02-24 HEART RATES 64 MIN at 00:54:28 2019-02-25 112 AVG 222 MAX at 18:33:32 2019-02-24 LONGEST RR 1.128 secs at 00:54:28 2019-02-25 S-T LEVELS Channel 1 -12.800 mm MIN at 10:56:00 2019-02-23 -12.800 mm MAX at 10:56:00 2019-02-23 Channel 2 -12.800 mm MIN at 10:56:00 2019-02-23 -12.800 mm MAX at 10:56:00 2019-02-23 Channel 3 -12.800 mm MIN at 10:56:00 2019-02-23 -12.800 mm MAX at 10:56:00 2019-02-23 There were no reported symptoms during the test. The patient had 5 recorded events of non-sustained ventricular tachycardia. They ranged from 5-7 beat runs. The rates ranged from 137-215 beats per minute (bpm). Otherwise, the patient was predom inantly in an atrial flutter rhythm with a variable conduction. The averate heart rate was [address] Rain's office was a sent a copy of t he study and I left a message with his office that he should view the test because of concerning abnormalities. Confirmed by GABINO MARKHAM ([id number]) on 02/25/2019 12:37:49 PM Referred By: Overread By: GABINO MARKHAM
== END ==
LOC: RESP 10:33
PROVIDERS: ATTEND Internal Medicine Cardiovascular Disease
DX: G45.9 Transient cerebral ischemic attack, unspecified (principal); I48.4 Atypical atrial flutter
CPT/HCPCS: 93225; 93226

== ENCOUNTER 2019-03-02 19:43 | Emergency (ER) | payer OTHER ==
[2018-04-15 12:38] VITALS: BMI 27.1
[2019-03-02] MEDS ORDERED: HEPARIN (PORC) 5000 UN/ML VIAL ONE (20:06)
[2019-03-02] MEDS ORDERED: LEVOPHED KIT (*) 1 IVSOL 1 KIT IV ONE (20:07)
[2019-03-02] MEDS ORDERED: ASPIRIN 300 MG SUPP PR ONE (20:08)
[2019-03-02] MEDS ORDERED: EPINEPHrine INJ 1 MG/10 ML SYR 1 MG in NS(*) 0.9% 250 ML BAG 240 ML IV ONE (20:20)
[2019-03-02 20:26] LABS: INR 1.45
[2019-03-02] MEDS ORDERED: HEPARIN* SOD/D5W 25000 U/500ML 500 ML IV ONE (20:29)
--- NOTE | 2019-03-02 20:38 | RADIOLOGY IMAGING REPORT ---
FACILITY: [facility] - [place] PATIENT NAME: William Jovel : 1955 MR: [id number] V: [id number] EXAM DATE: ORDERING PHYSICIAN: LAUREEN MCKEON TECHNOLOGIST: Location: [facility] - [place] Patient: iWlliam Jovel : 1955 Visit/Account:[id number] Date of Sevice: 03/02/2019 Examination: CHEST SINGLE AP Comparison: None. History: Pulseless electrical activity. Findings: Tip of the endotracheal tube is approximately 5.3 cm above the purvi. Cardiac and hilar co ntour is prominent. Mild bronchovascular prominence. No definite consolidation or edema. Small right pneumothorax. No definite displaced rib fracture is identified. IMPRESSION: 1. Intubation. 2. Small right pneumothorax. Results were discussed with Mauri Treviño at 03/02/2019 8:32 PM. Report Dictated By: Brad Ramirez MD at 03/02/2019 8:27 PM Report E-Signed By: Brad Ramirez MD at 03/02/2019 8:34 PM WSN:[id number]
[2019-03-02 20:40] LABS: PLATELET COUNT, AUTOMATED 155 K/uL (150-450)
--- NOTE | 2019-03-02 21:00 | EKG ---
FACILITY: PATIENT NAME: NOE GEE : [id number] MR: [id number] V: [id number] EXAM DATE: ORDERING PHYSICIAN: LAUREEN MCKEON TECHNOLOGIST: GENET Test Reason : CODE BLUE Blood Pressure : / mmHG Vent. Rate : 080 BPM Atrial Rate : 080 BPM P-R Int : 156 ms QRS Dur : 090 ms QT Int : 444 ms P-R-T Axes : 084 250 201 degrees QTc Int : 512 ms Sinus rhythm Right ventricular hypertrophy Inferior infarct , age undetermined Prolonged QT Abnormal ECG When compared with ECG of 17-MAR-2018 08:53, Significant changes have occurred Confirmed by KATERINE BURGOS ([id number]) on 03/03/2019 6:33:33 AM Referred By: Confirmed By:KATERINE BURGOS
--- NOTE | 2019-03-02 21:28 | ER Report ---
History and Physical Time Seen By MD: 19:43 HPI/ROS CHIEF COMPLAINT: cardiopulmonary arrest HISTORY OF PRESENT ILLNESS: This is a 63 year old male. Brought to the ER in full code by EMS. Found down at home in bathroom, unwitnessed, unknown length of time down. Appeared to have been in bathroom having a bowel movement. Last seen at 1730 hours. Found down [id number]. CPR started by [place] [employer]. EMS evaluation on arrival showed ventricular tachycardia. Shock given. Went from v- tach to asystole and PEA in their treatment. On arrival here in the ambulance bay, pulse regained. Transferred to our monitor. Unresponsive, no spontaneous movements or respiration. ET tube in place, ventilated by bag-valve mask. He has a history of atrial fibrillation with multiple ablations in the past. Recently in atrial flutter and appointment to see ball mill mixer [facility] on Saturday, Dr Oakes. Had not been feeling well today, general non- specific symptoms reported by his . REVIEW OF SYSTEMS: unable to obtain Allergies: Coded Allergies: No Known Drug Allergies (Verified , 04/13/18) Home Meds Active Scripts Prednisone 10 Mg Tab (PREDNISONE 10 MG TAB) 10 Mg Tablet, 10 MG PO BID, #60 TAB 1 Refill Prov:CORTES CHURCHILL MD 04/16/18 Leflunomide (LEFLUNOMIDE) 20 Mg Tablet, 20 MG PO DAILY for 30 Days, #30 TAB 1 Refill Prov:CORTES CHURCHILL MD 04/16/18 Reported Medications Apixaban (ELIQUIS) 5 Mg Tablet, 5 MG PO BID, #60 04/16/18 Cephalexin Monohydrate (CEPHALEXIN) 500 Mg Cap, 500 MG PO TID 04/14/18 Metoprolol Succinate (METOPROLOL SUCCINATE) 100 Mg Tab.er.24h, 100 MG PO BID 04/14/18 Colchicine/Probenecid (PROBENECID-COLCHICINE TABS) 1 Each Tablet, 1 EACH PO D AILY 04/07/18 Digoxin (DIGOXIN) 125 Mcg Tablet, 125 MCG PO DAILY 04/07/18 Allopurinol (ZYLOPRIM) 300 Mg Tablet, 300 MG PO HS, TAB 04/07/18 Potassium Chloride (POTASSIUM CHLORIDE) 20 Meq Tab.er.prt, 20 MEQ PO QDAY 12/31/17 Diltiazem Hcl (DILTIAZEM 24HR CD) 180 Mg Cap.er.24h, 180 MG PO BID 12/31/17 Reviewed Nurses Notes: Yes Hx Smoking: No Smoking Status: Never Smoker Hx Alcohol Use: Yes Constitutional Vital Sign - Last 24 Hours 03/02/19 03/02/19 03/02/19 03/02/19 19:43 19:52 19:54 19:58 Temp 95.9 Pulse 88 97 Resp 18 B/P (MAP) 125/42 125/118 (120) 146/105 (119) Pulse Ox 60 55 O2 Delivery Mechanical Ventilator 03/02/19 03/02/19 03/02/19 03/02/19 20:00 20:02 20:05 20:10 B/P (MAP) 81/60 (67) 87/33 (51) ???/??? (1665) FiO2 100.0 03/02/19 03/02/19 03/02/19 03/02/19 20:11 20:13 20:15 20:17 Pulse ??? Resp 0 B/P (MAP) 162/91 (114) 154/96 (115) Pulse Ox 55 FiO2 100.0 03/02/19 03/02/19 03/02/19 03/02/19 20:20 20:25 20:28 20:30 Pulse 75 Resp 18 B/P (MAP) 137/77 (97) 108/68 (81) 79/50 (60) 03/02/19 03/02/19 03/02/19 03/02/19 20:35 20:40 20:43 20:45 Pulse 101 Resp 105 B/P (MAP) 69/34 (46) 95/--- (53) 158/103 (121) Pulse Ox 5 03/02/19 03/02/19 03/02/19 03/02/19 20:50 20:55 20:58 21:00 Pulse 92 Resp 19 B/P (MAP) 135/100 (112) 90/61 (71) 79/50 (60) Pulse Ox 43 03/02/19 03/02/19 03/02/19 03/02/19 21:05 21:08 21:10 21:12 B/P (MAP) 63/34 (44) 82/25 (44) 222/31 (94) 139/93 (108) 03/02/19 03/02/19 03/02/19 03/02/19 21:13 21:20 21:25 21:28 Pulse 94 Resp 15 20 B/P (MAP) 105/75 (85) 95/64 (74) Pulse Ox 29 57 03/02/19 21:30 B/P (MAP) 95/58 (70) Physical Exam General Appearance: Unresponsive to pain, verbal, tactile stimuli. Intubated. Severe cyanosis in the extremities. Eyes: Pupils are fixed and dilated. ENT: Intubated. Dry membranes. No bleeding in oral or nasal mucosa. Normal TM and canals. Neck: Midline trachea, supple. Respiratory: Air movement both sides with [id number] ventilations. ETT looks smaller that stated 7.5. Cardiovascular: sinus rhythm on initial evaluation. Pulse is weak. Very poor peripheral perfusion. Gastrointestinal: Abdomen is soft. Nondistended. Normal active bowel sounds. Neurological: No spontaneous movements. Skin: Cool and dry. Musculoskeletal: No movements. No evidence of injury, hematoma. Has some abrasions on chest, appear from Axel device. DIFFERENTIAL DIAGNOSIS: After history and physical exam, differential diagnosis was considered for patient that is unresponsive, coded. likely cardiac event given his history. Medical Decision Making Data Points Result Diagram: 03/02/19195803/02/19 0000 Laboratory Hematology Test 03/02/19 00:00 03/02/19 19:59 03/02/19 21:30 Troponin I 0.176 ng/ml Digoxin Level < 0.4 ng/ml Digoxin Last Dose Date unk Digoxin Last Dose Time unk Red Blood Count 5.12 M/uL (4.00-5.60) Mean Corpuscular Volume 98.0 fL (80.0-96.0) Mean Corpuscular Hemoglobin 30.2 pg (26.0-33.0) Mean Corpuscular Hemoglobin Concent 30.6 g/dL (32.0-36.0) Red Cell Distribution Width 17.7 % (11.5-14.5) Mean Platelet Volume 8.6 fL (7.2-11.1) Neutrophils (%) (Auto) % (39.4-72.5) Lymphocytes (%) (Auto) % (17.6-49.6) Monocytes (%) (Auto) % (4.1-12.4) Eosinophils (%) (Auto) % (0.4-6.7) Basophils (%) (Auto) % (0.3-1.4) Nucleated RBC Relative Count (auto) /100WBC Neutrophils # (Auto) K/uL (2.0-7.4) Lymphocytes # (Auto) K/uL (1.3-3.6) Monocytes # (Auto) K/uL (0.3-1.0) Eosinophils # (Auto) K/uL (0.0-0.5) Basophils # (Auto) K/uL (0.0-0.1) Nucleated RBC Absolute Count (auto) K/uL Neutrophils % (Manual) 31 % (39.4-72.5) Band Neutrophils % 5 % Lymphocytes % (Manual) 50 % (17.6-49.6) Monocytes % (Manual) 10 % (4.1-12.4) Eosinophils % (Manual) 4 % (0.4-6.7) Basophils % (Manual) 0 % (0.3-1.4) Peripheral Blood Smear Yes Y/N Prothrombin Time 17.8 seconds (12.0-14.4) Prothromb Time International Ratio 1.45 Activated Partial Thromboplast Time 44 seconds (23-35) D-Dimer Quantitative (PE/DVT) 12.72 ug/ml (0-0.50) Lactate 15.0 mmol/L (0.7-2.1) Blood Gas Puncture Site Right radial Blood Gas Patient Temperature 93.9 DEGREES Arterial Blood pH 7.07 (7.35-7.45) Arterial Blood Partial Pressure CO2 32 mmHg (32-37) Arterial Blood Partial Pressure O2 91 mmHg (60-80) Arterial Blood HCO3 10 mmol/L (20-26) Arterial Blood Oxygen Saturation 95 % (92-100) Arterial Blood Base Excess -21.0 mmol/L Ector Test Nt avail Oxygen Liters/Minute 100 Chemistry Test 03/02/19 00:00 03/02/19 19:59 03/02/19 21:30 Troponin I 0.176 ng/ml Digoxin Level < 0.4 ng/ml Digoxin Last Dose Date unk Digoxin Last Dose Time unk White Blood Count 4.6 k/uL (4.5-11.0) Red Blood Count 5.12 M/uL (4.00-5.60) Hemoglobin 15.6 g/dL (14.0-18.0) Hematocrit 49.3 % (42.0-52.0) Mean Corpuscular Volume 98.0 fL (80.0-96.0) Mean Corpuscular Hemoglobin 30.2 pg (26.0-33.0) Mean Corpuscular Hemoglobin Concent 30.6 g/dL (32.0-36.0) Red Cell Distribution Width 17.7 % (11.5-14.5) Platelet Count 155 K/uL (150-450) Mean Platelet Volume 8.6 fL (7.2-11.1) Neutrophils (%) (Auto) % (39.4-72.5) Lymphocytes (%) (Auto) % (17.6-49.6) Monocytes (%) (Auto) % (4.1-12.4) Eosinophils (%) (Auto) % (0.4-6.7) Basophils (%) (Auto) % (0.3-1.4) Nucleated RBC Relative Count (auto) /100WBC Neutrophils # (Auto) K/uL (2.0-7.4) Lymphocytes # (Auto) K/uL (1.3-3.6) Monocytes # (Auto) K/uL (0.3-1.0) Eosinophils # (Auto) K/uL (0.0-0.5) Basophils # (Auto) K/uL (0.0-0.1) Nucleated RBC Absolute Count (auto) K/uL Neutrophils % (Manual) 31 % (39.4-72.5) Band Neutrophils % 5 % Lymphocytes % (Manual) 50 % (17.6-49.6) Monocytes % (Manual) 10 % (4.1-12.4) Eosinophils % (Manual) 4 % (0.4-6.7) Basophils % (Manual) 0 % (0.3-1.4) Peripheral Blood Smear Yes Y/N Prothrombin Time 17.8 seconds (12.0-14.4) Prothromb Time International Ratio 1.45 Activated Partial Thromboplast Time 44 seconds (23-35) D-Dimer Quantitative (PE/DVT) 12.72 ug/ml (0-0.50) Lactate 15.0 mmol/L (0.7-2.1) Blood Gas Puncture Site Right radial Blood Gas Patient Temperature 93.9 DEGREES Arterial Blood pH 7.07 (7.35-7.45) Arterial Blood Partial Pressure CO2 32 mmHg (32-37) Arterial Blood Partial Pressure O2 91 mmHg (60-80) Arterial Blood HCO3 10 mmol/L (20-26) Arterial Blood Oxygen Saturation 95 % (92-100) Arterial Blood Base Excess -21.0 mmol/L Ector Test Nt avail Oxygen Liters/Minute 100 Coagulation Test 03/02/19 19:59 Prothrombin Time 17.8 seconds Prothromb Time International Ratio 1.45 Activated Partial Thromboplast Time 44 seconds D-Dimer Quantitative (PE/DVT) 12.72 ug/ml Toxicology Test 03/02/19 00:00 Digoxin Level < 0.4 ng/ml Digoxin Last Dose Date unk Digoxin Last Dose Time unk EKG/Imaging EKG Interpretation 12 lead EKG: Rhythm: Sinus rhythm, rate 80 [place]: normal QRS: Negative ST segments: ST depressions in the inferior and lateral leads, reciprocal slight ST elevation in lead aVR Imaging Examination: CHEST SINGLE AP Comparison: None. History: Pulseless electrical activity. Findings: Tip of the endotracheal tube is approximately 5.3 cm above the purvi. Cardiac and hilar contour is prominent. Mild bronchovascular prominence. No definite consolidation or edema. Small right pneumothorax. No definite displaced rib fracture is identified. IMPRESSION: 1. Intubation. 2. Small right pneumothorax. Results were discussed with Mauri Treviño at 03/02/2019 8:32 PM. Report Dictated By: Brad Ramirez MD at 03/02/2019 8:27 PM Repeat chest x-ray after switching out ETT and placement of the ThoraVent p ending. ETT in good position. Do not appreciate pneumo. ED Course/Re-evaluation Clinical Indication for ER IV: Hydration, Hypotention, IV Access ED Course Initially switched to our monitors. Chest x-ray obtained. Lost pulse and began CPR again for a couple of rounds of CPR when regained pulse. Epinephrine given per ACLS protocols. Labs obtained including a blood gas, which appears like a venous stick on attempt at Femoral artery. Very acidotic. EKG obtained showing signs of inferior and lateral ST depressions, consistent with NSTEMI. Blood pressures are low, Norpeinephrine started. Heparin 4000unit bolus given. Rectal aspirin given. Heparin Drip started at 1000units/hr. Patient lost his pulse several more times in the ER, each time regained after 1-2 rounds of CPR and epinephrine. Seems dependent on Epinephrine so switched to epinephrine drip, but more ectopy and poor pressures with the Epi drip, so switched back to norepinephrine. Fluids total of 4liters NS as bolus, then switched to 500cc/hr. Called and spoke with Dr. Corey Strong, cardiology, then spoke with Dr. Miller Hill, Pulmonology/critical care. Spoke with the patient's and family. Critical condition. No helicopter available for flight. Arranged ground transp ort with cardiopulmonary and nursing. Discussed with , the chance of recovery is very low. Will proceed with ground ambulance. 1 amp of Bicarb given. Repeat blood gas prior to departure. Discussed with the patient's and family regarding critical state, not much chance of surviving this event. Still regaining pulse. Concern for length of time down, and poor perfusion of brain, could cause anoxic brain injury. Chance of recovery approaching zero with multiple resuscitation attempts. However, because we are still keeping his heart going, they would like to proceed with transfer to [facility] for further evaluation. They know he is unstable at this time for the transfer, but are wanting to proceed at this time, and even with the risk Initial blood gas (thought to be femoral venous on attempting femoral arterial): pH 6.80, pCO2 83, pO2 <35, HCO3 14, BE -21. Second blood gas (prior to transport): pH 7.07, pCO2 32, PO2 91, HCO3 10, BE -21 Normal CBC CMP: Na 134, K 4.3, Cl 99, HCO3 14, BUN 16, Cr 1.3, Gluc 200. T bili 0.7, AST 694, ALT 625, Alk phos 150 Lactate 15.0 Trop 0.176 Digoxin <0.4 PT 17.8, INR 1.45, PTT 44 Drips on transport: Norepinephrine at 10mcg Heparin 1000 units/hr NS at 500cc/hr Decision to Disposition Date: March 02, 2019 Decision to Disposition Time: 21:30 Critical Care Time I spent a total of 105 minutes of critical care time in obtaining history, performing a physical exam, bedside monitoring of interventions, collecting and interpreting tests and discussion with consultants but not including time spent performing procedures. Depart Departure Latest Vital Signs Vital Signs Date Time Temp Pulse Resp B/P (MAP) Pulse Ox O2 Delivery O2 Flow Rate FiO2 03/02/19 21:30 95/58 (70) 03/02/19 21:28 94 20 57 03/02/19 20:11 100.0 03/02/19 19:43 95.9 Mechanical Ventilator Impression: Primary Impression: NSTEMI (non-ST elevated myocardial infarction) Additional Impression: Cardiopulmonary arrest Condition: Critical Disposition: XFER TO [facility] Referrals: KATERINE SOSA MD (PCP) Problem Qualifiers LAUREEN MCKEON MD March 02, 2019 21:28
[2019-03-02 21:30] VITALS: BP 95/58
--- NOTE | 2019-03-02 22:54 | RADIOLOGY IMAGING REPORT ---
FACILITY: [facility] - [place] PATIENT NAME: William Jovel : 1955 MR: [id number] V: [id number] EXAM DATE: ORDERING PHYSICIAN: LAUREEN MCKEON TECHNOLOGIST: Location: [facility] - [place] Patient: William Jovel : 1955 Visit/Account:[id number] Date of Sevice: 03/02/2019 Examination: CHEST SINGLE AP Comparison: Earlier the same day. History: et tube placement Findings: The tip of the endotracheal tube is approximately 5 cm above the purvi. Enteric tube exten ds into the stomach. Cardiac and hilar contour size is within normal limits. Increased indistinct groundglass density greatest in the perihilar region. Small right pneumothorax i s unchanged. No mediastinal shift. Glenohumeral osteoarthritis. No definite displaced rib fracture. IMPRESSION: 1. Support equipment as described above. 2. Unchanged small right pneumothorax. 3. Increased indistinct parenchymal density is suggestive of developing edema. Report Dictated By: Brad Ramirez MD at 03/02/2019 10:46 PM Report E-Signed By: Brad Ramirez MD at 03/02/2019 10:50 PM WSN:[id number]
== END 2019-03-02 21:50 | disposition short-term general hospital (02) ==
LOC: ER 20:18
DX: I21.4 Non-ST elevation (NSTEMI) myocardial infarction (principal); I46.9 Cardiac arrest, cause unspecified
CPT/HCPCS: 36415; 36600; 71045; 80162; 82803; 83605; 84484; 85025; 85379; 85610; 85730; 93005; 94002; 96365; 96366; 96368; 99291; 99292; J0171; J1644; 82040; 82247; 82310; 82374; 82435; 82565; 82947; 84075; 84132; 84155; 84295; 84450; 84460; 84520

== ENCOUNTER → 2019-03-02 | Outpatient (CLI) | payer OTHER ==
[2018-04-15 12:38] VITALS: BMI 27.1
== END ==
LOC: AMB 19:21
PROVIDERS: ATTEND Nurse Practitioner
DX: I46.9 Cardiac arrest, cause unspecified (principal)
CPT/HCPCS: A0425; A0433

== ENCOUNTER → 2019-03-02 | Outpatient (CLI) | payer OTHER ==
[2018-04-15 12:38] VITALS: BMI 27.1
== END ==
LOC: AMB 21:12
PROVIDERS: ATTEND Nurse Practitioner
DX: I46.9 Cardiac arrest, cause unspecified (principal)
CPT/HCPCS: A0425; A0434